=== PATIENT | male | born 1960 | race Caucasian/White ===

== ENCOUNTER 2025-10-04 02:03 | Emergency (ER) | payer OTHER ==
[~2025-10-04] VITALS: Ht 172.7 cm; Wt 121.6 kg
[~2025-10-04 02:03] MED LIST: CHEMO; FAMO20 PO; FILG480I; HYDACE5; HYDCOR1TC; METPRE4DP PO; RANI150; WARF2; [UNRECOGNIZED DRUG - REMARK]
[2025-10-04 04:31] LABS: Source, Urine Clean Catch
[2025-10-04 04:53] LABS: Bilirubin, Urine Neg (Neg); Glucose Qualitative, Urine 4+ (Neg); Ketones, Urine Neg (Neg); Leukocyte Esterase, Urine Neg (Neg); Protein, Urine Neg (Neg); Specific Gravity, Urine 1.020 (1.003-1.022); Urobilinogen, Urine NORM (Normal)
[2025-10-04 05:05] LABS: Color, Urine Yellow (P-Yellow)
[2025-10-04 05:45] LABS: BASOPHILS ABSOLUTE AUTO 0.04 K/mm3 (0.00-0.23); BASOPHILS PERCENT AUTO 0 % (0-2); EOSINOPHILS ABSOLUTE AUTO 0.15 K/mm3 (0.00-0.68); EOSINOPHILS PERCENT AUTO 1 % (0-6); Hematocrit 47.1 % (37.0-53.0); Hemoglobin 15.9 g/dL (13.5-17.5); IMMATURE GRAN ABSOLUTE AUTO 0.04 K/mm3 (0.00-0.10); IMMATURE GRAN PERCENT AUTO 0 % (0-1); LYMPHOCYTES ABSOLUTE AUTO 2.07 K/mm3 (0.84-5.20); LYMPHOCYTES PERCENT AUTO 19 % (21-46); MONOCYTES ABSOLUTE AUTO 0.89 K/mm3 (0.16-1.47); MONOCYTES PERCENT AUTO 8 % (4-13); Mean Corpuscular HGB Conc 33.8 g/dL (31.5-36.5); Mean Corpuscular Volume 87 fL (80-100); NEUTROPHILS ABSOLUTE AUTO 7.91 K/mm3 (1.96-9.15); NEUTROPHILS PERCENT AUTO 71 % (41-73); NRBC ABSOLUTE 0.00 K/mm3 (0.00-0.02); NRBC Auto 0.0 /100 WBC (0.0-0.2); Platelet Count 224 K/mm3 (150-400); RDW Coefficient Variation 12.7 % (11.7-14.2); RDW Standard Deviation 40.0 fL (35.1-46.3)
[2025-10-04 06:16] LABS: Alanine Aminotransfer (ALT/SGP 40.0 U/L (12-78); Albumin, Blood 4.0 g/dL (3.4-5.0); Albumin/Globulin Ratio 1.3 (0.8-1.8); Anion Gap 7.0 mmol/L (3-11); Aspartate Aminotrans (AST/SGOT 18.0 U/L (12-37); Bilirubin, Total 1.3 mg/dL (0.1-1.0); Blood Urea Nitrogen 16.0 mg/dL (8-24); CO2, Blood 27.0 mmol/L (21-32); Calcium, Blood 9.3 mg/dL (8.5-10.1); Chloride, Blood 106.0 mmol/L (98-108); Creatinine, Blood 0.91 mg/dL (0.60-1.20); Globulin, Blood 3.0 g/dL (2.2-4.0); Glucose, Blood 189.0 mg/dL (70-99); Potassium, Blood 4.1 mmol/L (3.5-5.5); Sodium, Blood 136.0 mmol/L (136-145); Total Protein, Blood 7.0 g/dL (6.4-8.2)
[2025-10-04] MEDS ORDERED: LIDOCAINE1 EAC1 TOP (06:59)
[2025-10-04] MEDS ORDERED: Ketorolac Tromethamine 15mg Vial IV ONE (07:00)
[2025-10-04] MEDS ORDERED: Lidocaine 4% 1 Patch TOP ONE (07:00)
[2025-10-04 07:18] VITALS: BP 136/79
== END 2025-10-04 07:19 | disposition home or self-care (01) ==
LOC: ER 02:03
PROVIDERS: Emergency Medicine
DX: R07.89 Other chest pain (principal); Z79.899 Other long term (current) drug therapy
CPT/HCPCS: 71046; 74177; 80053; 81003; 85025; 96374; 99284-25; A9270; J1885; Q9967